=== PATIENT | male | born 1935 | race Caucasian/White ===

== ENCOUNTER 2016-12-02 06:26 | Day surgery (SDC) | payer MEDICARE, BC ==
[~2016-12-02 06:26] MED LIST: ALLEGRA180 PO; ALTA2.5 PO; ALTA5 PO; ALTACE10 MG PO; AMARYL1 MG PO; ASA5GR PO; ASAB PO; B12250T PO; CALTRA600D PO; CATAFLAM50 MG PO; CLARIT10 PO; CRESTOR10 PO; CRESTOR5 MG PO; CYANO1000T PO; FISH OIL1200 MG PO; FLOMAX4 PO; GLUCPH PO; HEMATINIC PL PO; HYGROTON 25 MG25 MG OR; LIOR10 PO; LIPITOR20 PO; LOM PO; LOP25 PO; NASONEX NAS; OYST-CAL500 MG PO; PAX10 PO; PEP20 PO; PLAVIX PO; PRAV10 PO; TRAZ50 PO; TRILIPIX135 MG PO; ULTRAM50 PO; VESICARE5 PO; VITAMIN D31000 UNIT PO
== END 2016-12-02 23:59 | disposition home or self-care (01) ==
LOC: SDC 06:26
PROVIDERS: Orthopaedic Surgery
PROC: 3E0R3BZ Introduction of Anesthetic Agent into Spinal Canal, Percutaneous Approach (ICD-10-PCS; 2016-12-02)
PROC: B01BYZZ Fluoroscopy of Spinal Cord using Other Contrast (ICD-10-PCS; 2016-12-02)
PROC: 3E0R33Z Introduction of Anti-inflammatory into Spinal Canal, Percutaneous Approach (ICD-10-PCS; principal; 2016-12-02 08:00)
DX: M54.16 Radiculopathy, lumbar region (principal); E11.9 Type 2 diabetes mellitus without complications; Z79.82 Long term (current) use of aspirin; Z79.52 Long term (current) use of systemic steroids; Z79.899 Other long term (current) drug therapy; Z86.73 Personal history of transient ischemic attack (TIA), and cerebral infarction without residual deficits; Z98.41 Cataract extraction status, right eye; Z98.42 Cataract extraction status, left eye; Z98.890 Other specified postprocedural states
CPT/HCPCS: 82962; J1040; J2250; J3010; Q9967